=== PATIENT | male | born 1990 | race Caucasian/White ===

== ENCOUNTER 2017-07-19 13:35 | Emergency (ER) | payer SELFPAY ==
--- NOTE | 2017-07-19 14:32 | EDM.PDOC ---
ED HPI GENERAL MEDICAL PROBLEM - General Chief Complaint: Abdominal Pain Stated Complaint: NO ENERGY AND TIRED Time Seen by Provider: 07/19/17 13:47 Source of Information: Reports: Patient History Limitations: Reports: No Limitations - History of Present Illness INITIAL COMMENTS - FREE TEXT/NARRATIVE: Resents reporting a four-day history of epigastric pain. Reports off and on nausea but no vomiting. He reports a poor appetite but has been eating and drinking. He denies constipation or diarrhea and has had 2 soft, dark formed stools in the last 4 days. He has a history of binge drinking and did go on a binge in the hours previous to the abdominal pain starting. He is otherwise healthy without chronic medical problems. Denies fever or dysuria. abdominal Pain Score (Numeric/FACES): 7 - Related Data Allergies Allergy/AdvReac Type Severity Reaction Status Date / Time No Known Allergies Allergy Verified 07/19/17 13:46 Home Meds: Home Meds Pantoprazole Sodium [Protonix] 40 mg PO DAILY #14 tablet. 07/19/17 [Rx] Past Medical History HEENT History: Reports: None Cardiovascular History: Reports: Hypertension Respiratory History: Reports: None Gastrointestinal History: Reports: None Genitourinary History: Reports: None Musculoskeletal History: Reports: None Neurological History: Reports: None Psychiatric History: Reports: None Endocrine/Metabolic History: Reports: None Hematologic History: Reports: None Immunologic History: Reports: None Oncologic (Cancer) History: Reports: None Dermatologic History: Reports: None - Past Surgical History Head Surgeries/Procedures: Reports: None HEENT Surgical History: Reports: None Cardiovascular Surgical History: Reports: None Respiratory Surgical History: Reports: None GI Surgical History: Reports: None Male Surgical History: Reports: None Endocrine Surgical History: Reports: None Neurological Surgical History: Reports: None Musculoskeletal Surgical History: Reports: None Oncologic Surgical History: Reports: None Dermatological Surgical History: Reports: None Social & Family History - Family History Family Medical History: Noncontributory - Tobacco Use Smoking Status *Q: Current Every Day Smoker Years of Tobacco use: 10 Packs/Tins Daily: 0.5 - Caffeine Use Caffeine Use: Reports: Coffee - Recreational Drug Use Recreational Drug Use: No ED ROS GENERAL - Review of Systems Review Of Systems: ROS reveals no pertinent complaints other than HPI. ED EXAM, GI/ABD - Physical Exam Exam: See Below Exam Limited By: No Limitations General Appearance: Alert, No Apparent Distress Ears: Normal External Exam Nose: Normal Inspection Throat/Mouth: Normal Inspection Head: Atraumatic, Normocephalic Neck: Normal Inspection Respiratory/Chest: No Respiratory Distress, Lungs Clear, No Accessory Muscle Use Cardiovascular: Normal Peripheral Pulses, Regular Rate, Rhythm, No Murmur GI/Abdominal Exam: Normal Bowel Sounds, Soft, No Distention, Other (Epigastric and left upper quadrant tenderness) Back Exam: Normal Inspection Extremities: Normal Inspection Neurological: Alert, Oriented Psychiatric: Normal Affect, Normal Mood Skin Exam: Warm, Dry, Intact, Normal Color, No Rash Lymphatic: No Adenopathy Course - Vital Signs Last Recorded V/S: Last Vital Signs Temp 36.9 C 07/19/17 13:47 Pulse 73 07/19/17 13:47 Resp 18 07/19/17 13:47 BP 144/85 H 07/19/17 13:49 Pulse Ox 97 07/19/17 13:47 - Orders/Labs/Meds Orders: Active Orders 24 hr Category Date Time Status Abdomen 2V AP Flat Upright [CR] Stat Exams 07/19/17 14:26 Ordered AMYLASE [CHEM] Stat Lab 07/19/17 14:26 Ordered CBC WITH AUTO DIFF [HEME] Stat Lab 07/19/17 14:25 Ordered COMPREHENSIVE METABOLIC PN,CMP [CHEM] Stat Lab 07/19/17 14:25 Ordered ETHANOL BLOOD MEDICAL [CHEM] Stat Lab 07/19/17 14:25 Ordered Departure - Departure Time of Disposition: 14:31 Disposition: Home, Self-Care 01 Condition: Good Clinical Impression: Gastritis Qualifiers: Gastritis type: unspecified gastritis Chronicity: acute Gastritis bleeding: without bleeding Qualified Code(s): K29.00 - Acute gastritis without bleeding - Discharge Information Referrals: PCP,None [Primary Care Provider] - [facility] [Outside] [facility] [Outside] Additional Instructions: 1. Take your Protonix once daily 30 minutes before breakfast. 2. May use Zantac or Pepsid [id number] once daily along with the Protonix 3. You must follow-up in primary care. Please bring a stool sample with you for H. pylori testing. 4. You may also use Maalox 10-20 cc twice daily for epigastric pain. 5. Please refrain from alcohol use. - My Orders Last 24 Hours: My Active Orders 07/19/17 14:25 CBC WITH AUTO DIFF [HEME] Stat COMPREHENSIVE METABOLIC PN,CMP [CHEM] Stat ETHANOL BLOOD MEDICAL [CHEM] Stat 07/19/17 14:26 Abdomen 2V AP Flat Upright [CR] Stat AMYLASE [CHEM] Stat - Assessment/Plan Last 24 Hours: My Active Orders 07/19/17 14:25 CBC WITH AUTO DIFF [HEME] Stat COMPREHENSIVE METABOLIC PN,CMP [CHEM] Stat ETHANOL BLOOD MEDICAL [CHEM] Stat 07/19/17 14:26 Abdomen 2V AP Flat Upright [CR] Stat AMYLASE [CHEM] Stat
[2017-07-19 14:48] LABS: CHLORIDE,CL 102 mmol/L (98-107); SODIUM,NA 138 mmol/L (136-148)
--- NOTE | 2017-07-19 15:16 | CR ---
EXAMINATION: Abdomen HISTORY: Pain COMPARISON: None TECHNIQUE: AP and upright views FINDINGS: No free air under the diaphragm. There is a nonobstructive bowel gas pattern with a small a mount of stool and gas throughout the colon. No cardiomegaly. No abnormal calcifications project over the kidneys. Osseous structures appear normal. IMPRESSION: Unremarkable abdominal films.
[2017-07-19] MEDS ORDERED: Ondansetron 4 MG/2 ML SDV IVPUSH ONE (15:33)
[2017-07-19] MEDS ORDERED: Sodium Chloride 0.9% 1,000 ML IV ONE (15:33)
== END 2017-07-19 17:43 | disposition home or self-care (01) ==
LOC: MW.ED 13:35
DX: K29.00 Acute gastritis without bleeding (principal); I10 Essential (primary) hypertension; F17.210 Nicotine dependence, cigarettes, uncomplicated
CPT/HCPCS: 74019; 80053; 82150; 85025; 96361; 96374; 99284; G0480; J2405; J7040

== ENCOUNTER 2018-09-13 05:01 | Emergency (ER) | payer BC, OTHER ==
[2018-09-13] MEDS ORDERED: Pantoprazole 40 MG Vial IVPUSH ONE (05:22)
[2018-09-13] MEDS ORDERED: Ondansetron 4 MG/2 ML SDV IVPUSH ONE (05:22)
[2018-09-13] MEDS ORDERED: Sodium Chloride 0.9% 1,000 ML IV ONE (05:22)
[2018-09-13] MEDS ORDERED: Sodium Chloride 0.9% 10 ML Syringe FLUSH PRN (05:23)
[2018-09-13] MEDS ORDERED: Sodium Chloride 0.9% 2.5 ML Syringe FLUSH PRN (05:23)
--- NOTE | 2018-09-13 05:27 | EDM.PDOC ---
ED HPI GENERAL MEDICAL PROBLEM - General Chief Complaint: Gastrointestinal Problem Stated Complaint: BLOTTED Time Seen by Provider: 09/13/18 05:18 - History of Present Illness INITIAL COMMENTS - FREE TEXT/NARRATIVE: HISTORY AND PHYSICAL: History of present illness: The patient is a 27-year-old male with no abdominal surgical history and no documented GI history was been seen here in the emergency department in the past in July 2017 for epigastric pain/gastritis after an episode of binge drinking and who presents this evening with similar. He says that he drank heavily over the weekend when he was up at the [place] and then starting on Tuesday he had epigastric pain associated with some nausea and vomiting and then yesterday on Tuesday he was unable to keep any fluids down. In the past he was prescribed Protonix which he took and finished the prescription but he never followed up for further testing or endoscopy. He has no history of food intolerance no recent fevers chills no chest pain or shortness of breath and has not had a bowel movement over the last 2 days. Over the weekend he did have some loose stools which were not black or bloody. The patient says he is not vomiting coffee grounds or blood but he is only vomiting up everything that he puts in. Review of systems: As per history of present illness and below otherwise all systems reviewed and negative. Past medical history: As per history of present illness and as reviewed below otherwise noncontributory. Surgical history: As per history of present illness and as reviewed below otherwise noncontributory. Social history: No reported history of drug or alcohol abuse. Family history: As per history of present illness and as reviewed below otherwise noncontributory. Physical exam: General: Well-developed well-nourished man who is nontoxic and vital signs are noted by me HEENT: Atraumatic, normocephalic, pupils reactive, negative for conjunctival pallor or scleral icterus, mucous membranes moist, throat clear, neck supple, nontender, trachea midline. Lungs: Clear to auscultation, breath sounds equal bilaterally, chest nontender. Heart: S1S2, regular rhythm is fairly tachycardic rate on my evaluation Abdomen: Soft, nondistended, no sounds are hypoactive and there is some tympany on percussion without rebound or guarding. There is mild epigastric tenderness and some slight right epigastric tenderness but no left upper quadrant or lower abdominal tenderness Negative for masses or hepatosplenomegaly. Negative for costovertebral tenderness. Pelvis: Stable nontender. Genitourinary: Deferred. Rectal: Deferred. Extremities: Atraumatic, negative for cords or calf pain. Neurovascular unremarkable. Neuro: Awake, alert, oriented. Cranial nerves II through XII unremarkable. Cerebellum unremarkable. Motor and sensory unremarkable throughout. Exam nonfocal. Diagnostics: CBC CMP amylase lipase UA with reflex alcohol level abdominal x-rays with chest Therapeutics: IV fluids Zofran and Protonix, Toradol and GI cocktail Impression: Epigastric pain and vomiting history of recent alcohol use Definitive disposition and diagnosis as appropriate pending reevaluation and review of above. Abdomen Pain Score (Numeric/FACES): 6 - Related Data Allergies Allergy/AdvReac Type Severity Reaction Status Date / Time No Known Allergies Allergy Verified 09/13/18 05:10 Home Meds: Home Meds Cannabidiol (Cbd) Extract [Epidiolex] 200 mg PO DAILY 09/13/18 [History] Past Medical History HEENT History: Reports: None Cardiovascular History: Reports: Hypertension Respiratory History: Reports: None Gastrointestinal History: Reports: None Genitourinary History: Reports: None Musculoskeletal History: Reports: None Neurological History: Reports: None Psychiatric History: Reports: Anxiety, Depression Endocrine/Metabolic History: Reports: None Hematologic History: Reports: None Immunologic History: Reports: None Oncologic (Cancer) History: Reports: None Dermatologic History: Reports: None - Infectious Disease History Infectious Disease History: Reports: None - Past Surgical History Head Surgeries/Procedures: Reports: None HEENT Surgical History: Reports: None Cardiovascular Surgical History: Reports: None Respiratory Surgical History: Reports: None GI Surgical History: Reports: None Male Surgical History: Reports: None Endocrine Surgical History: Reports: None Neurological Surgical History: Reports: None Musculoskeletal Surgical History: Reports: None Oncologic Surgical History: Reports: None Dermatological Surgical History: Reports: None Social & Family History - Family History Family Medical History: Noncontributory - Tobacco Use Smoking Status *Q: Current Every Day Smoker Years of Tobacco use: 10 Packs/Tins Daily: 1 - Caffeine Use Caffeine Use: Reports: Coffee - Recreational Drug Use Recreational Drug Use: No ED ROS GENERAL - Review of Systems Review Of Systems: ROS reveals no pertinent complaints other than HPI. ED EXAM, GENERAL - Physical Exam Exam: See Below (See dictation) Course - Vital Signs Last Recorded V/S: Last Vital Signs Temp 36.4 C 09/13/18 05:12 Pulse 55 L 09/13/18 05:12 Resp 18 09/13/18 05:12 BP 146/77 H 09/13/18 05:12 Pulse Ox 98 09/13/18 05:12 - Orders/Labs/Meds Orders: Active Orders 24 hr Category Date Time Status Sodium Chloride 0.9% [Saline Flush] Med 09/13/18 05:23 Active 10 ml FLUSH ASDIRECTED PRN Sodium Chloride 0.9% [Saline Flush] Med 09/13/18 05:23 Active 2.5 ml FLUSH ASDIRECTED PRN Saline Lock Insert [OM.PC] Stat Oth 09/13/18 05:22 Ordered Medication Orders Sodium Chloride (Saline Flush) 10 ml FLUSH ASDIRECTED PRN PRN Reason: Keep Vein Open Sodium Chloride (Saline Flush) 2.5 ml FLUSH ASDIRECTED PRN PRN Reason: Keep Vein Open Labs: Laboratory Tests 09/13/18 09/13/18 09/13/18 Range/Units 05:25 05:25 06:02 WBC 12.53 H (4.0-11.0) K/uL RBC 5.46 (4.50-5.90) M/uL Hgb 16.8 (13.0-17.0) g/dL Hct 48.0 (38.0-50.0) % MCV 87.9 (80.0-98.0) fL MCH 30.8 (27.0-32.0) pg MCHC 35.0 (31.0-37.0) g/dL RDW Std Deviation 38.8 (28.0-62.0) fl RDW Coeff of Dwight 12 (11.0-15.0) % Plt Count 177 (150-400) K/uL MPV 10.50 (7.40-12.00) fL Neut % (Auto) 64.1 (48.0-80.0) % Lymph % (Auto) 24.8 (16.0-40.0) % [place] % (Auto) 9.3 (0.0-15.0) % Eos % (Auto) 1.6 (0.0-7.0) % Baso % (Auto) 0.2 (0.0-1.5) % Neut # (Auto) 8.0 H (1.4-5.7) K/uL Lymph # (Auto) 3.1 H (0.6-2.4) K/uL [place] # (Auto) 1.2 H (0.0-0.8) K/uL Eos # (Auto) 0.2 (0.0-0.7) K/uL Baso # (Auto) 0.0 (0.0-0.1) K/uL Nucleated RBC % 0.0 /100WBC Nucleated RBCs # 0 K/uL Sodium 140 (136-148) mmol/L Potassium 4.0 (3.5-5.1) mmol/L Chloride 104 (98-107) mmol/L Carbon Dioxide 25.3 (21.0-32.0) mmol/L BUN 14 (7.0-18.0) mg/dL Creatinine 1.0 (0.8-1.3) mg/dL Est Cr Clr Drug Dosing 110.96 mL/min Estimated GFR (MDRD) > 60.0 ml/min Glucose 102 (74-106) mg/dL Calcium 8.9 (8.5-10.1) mg/dL Total Bilirubin 0.9 (0.2-1.0) mg/dL AST 28 (15-37) IU/L ALT 80 H (14-63) IU/L Alkaline Phosphatase 56 (46-116) U/L Total Protein 6.9 (6.4-8.2) g/dL Albumin 3.8 (3.4-5.0) g/dL Globulin 3.1 (2.6-4.0) g/dL Albumin/Globulin Ratio 1.2 (0.9-1.6) Amylase 41 (25-115) U/L Lipase 185 (73-393) U/L Urine Color YELLOW Urine Appearance CLEAR Urine pH 7.0 (5.0-8.0) Ur Specific [place] 1.015 (1.001-1.035) Urine Protein NEGATIVE (NEGATIVE) mg/dL Urine Glucose (UA) NEGATIVE (NEGATIVE) mg/dL Urine Ketones NEGATIVE (NEGATIVE) mg/dL Urine Occult Blood NEGATIVE (NEGATIVE) Urine Nitrite NEGATIVE (NEGATIVE) Urine Bilirubin NEGATIVE (NEGATIVE) Urine Urobilinogen 0.2 (<2.0) EU/dL Ur Leukocyte Esterase NEGATIVE (NEGATIVE) Ethyl Alcohol 4 mg/dL Meds: Medications Generic Name Dose Route Start Last Admin Trade Name Freq PRN Reason Stop Dose Admin Sodium Chloride 10 ml 09/13/18 05:23 Saline Flush FLUSH ASDIRECTED PRN Keep Vein Open Sodium Chloride 2.5 ml 09/13/18 05:23 Saline Flush FLUSH ASDIRECTED PRN Keep Vein Open Discontinued Medications Generic Name Dose Route Start Last Admin Trade Name Freq PRN Reason Stop Dose Admin Al Hydroxide/Mg Hydroxide 15 0 ml 09/13/18 06:21 ml/ Metoclopramide HCl 5 mg/ PO 09/13/18 06:22 Lidocaine HCl 5 ml ONETIME ONE Sodium Chloride 1,000 mls @ 999 mls/hr 09/13/18 05:22 09/13/18 05:36 Normal Saline IV 09/13/18 06:22 999 mls/hr STAT ONE Administration Ketorolac Tromethamine 30 mg 09/13/18 06:21 Toradol IVPUSH 09/13/18 06:22 ONETIME ONE Ondansetron HCl 4 mg 09/13/18 05:22 09/13/18 05:36 Zofran IVPUSH 09/13/18 05:23 4 mg ONETIME ONE Administration Pantoprazole Sodium 80 mg 09/13/18 05:22 09/13/18 05:36 Protonix Iv IVPUSH 09/13/18 05:23 80 mg .BOLUS ONE Administration Departure - Departure Time of Disposition: 06:23 Disposition: Home, Self-Care 01 Condition: Good Clinical Impression: Vomiting, Abdominal pain - Discharge Information Referrals: PCP,None [Primary Care Provider] - Forms: ED Department Discharge Additional Instructions: The following information is given to patients seen in the emergency department who are being discharged to home. This information is to outline your options for follow-up care. We provide all patients seen in our emergency department with a follow-up referral. The need for follow-up, as well as the timing and circumstances, are variable depending upon the specifics of your emergency department visit. If you don't have a primary care physician on staff, we will provide you with a referral. We always advise you to contact your personal physician following an emergency department visit to inform them of the circumstance of the visit and for follow-up with them and/or the need for any referrals to a consulting specialist. The emergency department will also refer you to a specialist when appropriate. This referral assures that you have the opportunity for followup care with a specialist. All of these measure are taken in an effort to provide you with optimal care, which includes your followup. Under all circumstances we always encourage you to contact your private physician who remains a resource for coordinating your care. When calling for followup care, please make the office aware that this follow-up is from your recent emergency room visit. If for any reason you are refused follow-up, please contact the [facility] emergency department at and ask to speak to the emergency department charge nurse. [facility] Primary [facility]- Internal Medicine and Family [address] [id number] Please push hydration such as water and Gatorade and avoid all irritating substances to the stomach such as caffeine and alcohol chocolate and spicy foods. Eat a low-fat bland diet for the next few days. Take Protonix as prescribed and he may also add [id number] Mylanta as you choose to help soothe her stomach. Please call and schedule a follow-up appointment appointment in our clinic as we discussed for further care and reevaluation and return to ER as needed and as discussed - My Orders Last 24 Hours: My Active Orders 09/13/18 05:22 Saline Lock Insert [OM.PC] Stat 09/13/18 05:23 Sodium Chloride 0.9% [Saline Flush] 10 ml FLUSH ASDIRECTED PRN Sodium Chloride 0.9% [Saline Flush] 2.5 ml FLUSH ASDIRECTED PRN - Assessment/Plan Last 24 Hours: My Active Orders 09/13/18 05:22 Saline Lock Insert [OM.PC] Stat 09/13/18 05:23 Sodium Chloride 0.9% [Saline Flush] 10 ml FLUSH ASDIRECTED PRN Sodium Chloride 0.9% [Saline Flush] 2.5 ml FLUSH ASDIRECTED PRN
[2018-09-13 06:13] LABS: BLOOD UREA NITROGEN,BUN 14 mg/dL (7.0-18.0); CARBON DIOXIDE,CO2 25.3 mmol/L (21.0-32.0); CHLORIDE,CL 104 mmol/L (98-107); GLUCOSE RANDOM 102 mg/dL (74-106); LIPASE 185 U/L (73-393); SODIUM,NA 140 mmol/L (136-148)
--- NOTE | 2018-09-13 06:14 | CR ---
INDICATION: Abdominal pain COMPARISON: none TECHNIQUE: Two view abdomen and PA chest. FINDINGS: The lungs are clear. The heart mediastinum and pulmonary vessels are normal in size. There is no evidence pleural fluid. The bowel gas pattern appears normal. There is no evidence of free intraperitoneal air or soft tissue mass effect. There are no pathologic calcifications. IMPRESSION: Negative chest and abdomen. Dictated by Michi Lorenzo MD @ Sep 13 2018 6:09AM Signed by Dr. Michi Lorenzo @ Sep 13 2018 6:14AM
[2018-09-13] MEDS ORDERED: Ketorolac 30 MG/ML SDV IVPUSH ONE (06:21)
[2018-09-13] MEDS ORDERED: Alum Hydrox/Mag Hydrox/Simeth 15 ML, Metoclopramide 5 MG, Lidocaine 2% 5 ML PO ONE ×3 (06:21)
== END 2018-09-13 07:21 | disposition home or self-care (01) ==
LOC: MW.ED 05:01
DX: R10.13 Epigastric pain (principal); R11.10 Vomiting, unspecified; I10 Essential (primary) hypertension; F17.210 Nicotine dependence, cigarettes, uncomplicated
CPT/HCPCS: 36415; 74022; 80053; 81003; 82150; 83690; 85025; 96361; 96374; 96375; 99284; A9270; C9113; G0480; J1885; J2405; J7040

== ENCOUNTER 2018-10-27 00:33 | Emergency (ER) | payer SELFPAY ==
[2018-10-27] MEDS ORDERED: Sodium Chloride 0.9% 10 ML Syringe FLUSH PRN (00:57)
[2018-10-27] MEDS ORDERED: Sodium Chloride 0.9% 2.5 ML Syringe FLUSH PRN (00:57)
[2018-10-27] MEDS ORDERED: Sodium Chloride 0.9% 1,000 ML IV ONE (01:03)
--- NOTE | 2018-10-27 01:07 | EDM.PDOC ---
ED HPI GENERAL MEDICAL PROBLEM - General Chief Complaint: General Stated Complaint: CHILLS, LOW HEART RATE Time Seen by Provider: 10/27/18 00:55 - History of Present Illness INITIAL COMMENTS - FREE TEXT/NARRATIVE: HISTORY AND PHYSICAL: History of present illness: The patient is a 27-year-old male who presents with onset just prior to admission of feeling lightheaded feeling weak feeling shaky she really and anxious as he was trying to get ready for bed. He did not pass out or blackout and had no trauma with these events. Earlier today he said he did take an over- the-counter stimulant to help him focus at 12 noon and he says that it worked well throughout the day evening he came home and ate food and was feeling at his baseline and did have an alcoholic beverage and then was getting ready for bed when the symptoms started. He denies any complaints of chest pain or shortness of breath no abdominal pain no nausea or vomiting and no diarrhea earlier. He has no head neck or back pain. Patient has been seen before in the emergency department for stomach issues such as gastritis and I reviewed that chart. The patient denies drug use. Currently he says numerous [place] he does has generalized weakness and feels like he has no energy. General: Well- developed well-nourished man who is nontoxic and vital signs were noted by me. He prefers to keep his head turned to the side in his eyes closed and speaks very slowly and softly and is able to move all extremities spontaneously but there is a lack of effort on my examination. Review of systems: As per history of present illness and below otherwise all systems reviewed and negative. Past medical history: As per history of present illness and as reviewed below otherwise noncontributory. Surgical history: As per history of present illness and as reviewed below otherwise noncontributory. Social history: No reported history of drug or alcohol abuse. Family history: As per history of present illness and as reviewed below otherwise noncontributory. Physical exam: HEENT: Atraumatic, normocephalic, pupils reactive, negative for conjunctival pallor or scleral icterus, mucous membranes tacky, throat clear, neck supple, nontender, trachea midline. Lungs: Clear to auscultation, breath sounds equal bilaterally, chest nontender. Heart: S1S2, regular, negative for clicks, rubs, or JVD. Abdomen: Soft, nondistended, nontender. sounds are hypoactive and there is some tympany on percussion without rebound guarding or tenderness. Negative for masses or hepatosplenomegaly. Negative for costovertebral tenderness. Pelvis: Stable nontender. Genitourinary: Deferred. Rectal: Deferred. Extremities: Atraumatic, negative for cords or calf pain. Neurovascular unremarkable. Neuro: Awake, alert, oriented. Cranial nerves II through XII unremarkable. Cerebellum unremarkable. Motor is a 3/5 throughout without focal weakness and effort is poor on the patient's exam and sensory unremarkable throughout. Exam nonfocal. Skin: Turgor is normal face is slightly flushed and there is no overt rashes or lesions Diagnostics: EKG CBC CMP alcohol level troponin TSH UA UDS CT scan of the head chest x-ray Therapeutics: IV O2 monitor IV fluids Patient is saying that he is feeling much improved and he was able to get up and ambulate to the bathroom and is moving all extremities with normal strength. I discussed with him and his significant other at bedside all testing results which are within normal limits with the exception of the TSH that is elevated. I've advised him to get a full thyroid panel performed in the clinic to see if he is hypothyroid and needs medications. The patient states understanding. He also tells me that he has a history of ADHD and was on medications until he was [age] years of age when he stopped taking them which is why he takes these [id number] supplements. He is been advised to push hydration and avoid the supplements and caffeinated products and to follow- up in our clinic. Impression: Episode of lightheadedness and generalized weakness Definitive disposition and diagnosis as appropriate pending reevaluation and review of above. - Related Data Allergies Allergy/AdvReac Type Severity Reaction Status Date / Time No Known Allergies Allergy Verified 10/27/18 00:46 Home Meds: Home Meds Cannabidiol (Cbd) Extract [Epidiolex] 200 mg PO DAILY 09/13/18 [History] Past Medical History HEENT History: Reports: None Cardiovascular History: Reports: Hypertension, Other (See Below) Other Cardiovascular History: states he's never been on anti-HTN med Respiratory History: Reports: None Gastrointestinal History: Reports: None Genitourinary History: Reports: None Musculoskeletal History: Reports: None Neurological History: Reports: None Psychiatric History: Reports: Anxiety, Depression Endocrine/Metabolic History: Reports: None Hematologic History: Reports: None Immunologic History: Reports: None Oncologic (Cancer) History: Reports: None Dermatologic History: Reports: None - Infectious Disease History Infectious Disease History: Reports: Chicken Pox - Past Surgical History Head Surgeries/Procedures: Reports: None HEENT Surgical History: Reports: None Cardiovascular Surgical History: Reports: None Respiratory Surgical History: Reports: None GI Surgical History: Reports: None Male Surgical History: Reports: None Endocrine Surgical History: Reports: None Neurological Surgical History: Reports: None Musculoskeletal Surgical History: Reports: None Oncologic Surgical History: Reports: None Dermatological Surgical History: Reports: None Social & Family History - Family History Family Medical History: Noncontributory - Tobacco Use Smoking Status *Q: Current Every Day Smoker Years of Tobacco use: 10 Packs/Tins Daily: 1 - Caffeine Use Caffeine Use: Reports: None - Recreational Drug Use Recreational Drug Use: No ED ROS GENERAL - Review of Systems Review Of Systems: ROS reveals no pertinent complaints other than HPI. ED EXAM, GENERAL - Physical Exam Exam: See Below (See dictation) Course - Vital Signs Last Recorded V/S: Last Vital Signs Temp 36.0 C 10/27/18 00:36 Pulse 57 L 10/27/18 02:15 Resp 15 10/27/18 02:15 BP 116/66 10/27/18 02:15 Pulse Ox 97 10/27/18 02:15 - Orders/Labs/Meds Orders: Active Orders 24 hr Category Date Time Status Cardiac Monitoring [RC] . DIRECTED Care 10/27/18 00:57 Active EKG Documentation Completion [RC] STAT Care 10/27/18 00:57 Active Oxygen Therapy, ED [RC] ASDIRECTED Care 10/27/18 00:57 Active Pulse Oximetry [RC] ASDIRECTED Care 10/27/18 00:57 Active Sodium Chloride 0.9% [Saline Flush] Med 10/27/18 00:57 Active 10 ml FLUSH ASDIRECTED PRN Sodium Chloride 0.9% [Saline Flush] Med 10/27/18 00:57 Active 2.5 ml FLUSH ASDIRECTED PRN Saline Lock Insert [OM.PC] Stat Oth 10/27/18 00:57 Ordered Medication Orders Sodium Chloride (Saline Flush) 10 ml FLUSH ASDIRECTED PRN PRN Reason: Keep Vein Open Sodium Chloride (Saline Flush) 2.5 ml FLUSH ASDIRECTED PRN PRN Reason: Keep Vein Open Labs: Laboratory Tests 10/27/18 10/27/18 10/27/18 Range/Units 01:55 01:55 01:58 WBC 6.82 (4.0-11.0) K/uL RBC 4.86 (4.50-5.90) M/uL Hgb 14.8 (13.0-17.0) g/dL Hct 41.9 (38.0-50.0) % MCV 86.2 (80.0-98.0) fL MCH 30.5 (27.0-32.0) pg MCHC 35.3 (31.0-37.0) g/dL RDW Std Deviation 38.6 (28.0-62.0) fl RDW Coeff of [place] 12 (11.0-15.0) % Plt Count 160 (150-400) K/uL MPV 9.90 (7.40-12.00) fL Neut % (Auto) 46.7 L (48.0-80.0) % Lymph % (Auto) 39.6 (16.0-40.0) % [place] % (Auto) 10.6 (0.0-15.0) % Eos % (Auto) 2.8 (0.0-7.0) % Baso % (Auto) 0.3 (0.0-1.5) % Neut # (Auto) 3.2 (1.4-5.7) K/uL Lymph # (Auto) 2.7 H (0.6-2.4) K/uL [place] # (Auto) 0.7 (0.0-0.8) K/uL Eos # (Auto) 0.2 (0.0-0.7) K/uL Baso # (Auto) 0.0 (0.0-0.1) K/uL Nucleated RBC % 0.0 /100WBC Nucleated RBCs # 0 K/uL Sodium 140 (136-148) mmol/L Potassium 4.0 (3.5-5.1) mmol/L Chloride 105 (98-107) mmol/L Carbon Dioxide 28.0 (21.0-32.0) mmol/L BUN 20 H (7.0-18.0) mg/dL Creatinine 1.3 (0.8-1.3) mg/dL Est Cr Clr Drug Dosing 88.13 mL/min Estimated GFR (MDRD) > 60.0 ml/min Glucose 97 (74-106) mg/dL Calcium 9.2 (8.5-10.1) mg/dL Total Bilirubin 0.4 (0.2-1.0) mg/dL AST 30 (15-37) IU/L ALT 63 (14-63) IU/L Alkaline Phosphatase 56 (46-116) U/L Troponin I < 0.050 (0.000-0.056) ng/mL Total Protein 6.5 (6.4-8.2) g/dL Albumin 3.7 (3.4-5.0) g/dL Globulin 2.8 (2.6-4.0) g/dL Albumin/Globulin Ratio 1.3 (0.9-1.6) TSH 3rd Generation 6.24 H (0.36-3.74) uIU/mL Urine Color YELLOW Urine Appearance CLEAR Urine pH 7.0 (5.0-8.0) Ur Specific [place] 1.015 (1.001-1.035) Urine Protein NEGATIVE (NEGATIVE) mg/dL Urine Glucose (UA) NEGATIVE (NEGATIVE) mg/dL Urine Ketones NEGATIVE (NEGATIVE) mg/dL Urine Occult Blood NEGATIVE (NEGATIVE) Urine Nitrite NEGATIVE (NEGATIVE) Urine Bilirubin NEGATIVE (NEGATIVE) Urine Urobilinogen 0.2 (<2.0) EU/dL Ur Leukocyte Esterase NEGATIVE (NEGATIVE) Urine Opiates Screen (NEGATIVE) Ur Oxycodone Screen (NEGATIVE) Urine Methadone Screen (NEGATIVE) Ur Barbiturates Screen (NEGATIVE) Ur Phencyclidine Scrn (NEGATIVE) Ur Amphetamine Screen (NEGATIVE) U Methamphetamines Scrn (NEGATIVE) U Benzodiazepines Scrn (NEGATIVE) U Cocaine Metab Screen (NEGATIVE) U Marijuana (THC) Screen (NEGATIVE) Ethyl Alcohol <3 mg/dL 10/27/18 Range/Units 01:58 WBC (4.0-11.0) K/uL RBC (4.50-5.90) M/uL Hgb (13.0-17.0) g/dL Hct (38.0-50.0) % MCV (80.0-98.0) fL MCH (27.0-32.0) pg MCHC (31.0-37.0) g/dL RDW Std Deviation (28.0-62.0) fl RDW Coeff of [place] (11.0-15.0) % Plt Count (150-400) K/uL MPV (7.40-12.00) fL Neut % (Auto) (48.0-80.0) % Lymph % (Auto) (16.0-40.0) % [place] % (Auto) (0.0-15.0) % Eos % (Auto) (0.0-7.0) % Baso % (Auto) (0.0-1.5) % Neut # (Auto) (1.4-5.7) K/uL Lymph # (Auto) (0.6-2.4) K/uL [place] # (Auto) (0.0-0.8) K/uL Eos # (Auto) (0.0-0.7) K/uL Baso # (Auto) (0.0-0.1) K/uL Nucleated RBC % /100WBC Nucleated RBCs # K/uL Sodium (136-148) mmol/L Potassium (3.5-5.1) mmol/L Chloride (98-107) mmol/L Carbon Dioxide (21.0-32.0) mmol/L BUN (7.0-18.0) mg/dL Creatinine (0.8-1.3) mg/dL Est Cr Clr Drug Dosing mL/min Estimated GFR (MDRD) ml/min Glucose (74-106) mg/dL Calcium (8.5-10.1) mg/dL Total Bilirubin (0.2-1.0) mg/dL AST (15-37) IU/L ALT (14-63) IU/L Alkaline Phosphatase (46-116) U/L Troponin I (0.000-0.056) ng/mL Total Protein (6.4-8.2) g/dL Albumin (3.4-5.0) g/dL Globulin (2.6-4.0) g/dL Albumin/Globulin Ratio (0.9-1.6) TSH 3rd Generation (0.36-3.74) uIU/mL Urine Color Urine Appearance Urine pH (5.0-8.0) Ur Specific [place] (1.001-1.035) Urine Protein (NEGATIVE) mg/dL Urine Glucose (UA) (NEGATIVE) mg/dL Urine Ketones (NEGATIVE) mg/dL Urine Occult Blood (NEGATIVE) Urine Nitrite (NEGATIVE) Urine Bilirubin (NEGATIVE) Urine Urobilinogen (<2.0) EU/dL Ur Leukocyte Esterase (NEGATIVE) Urine Opiates Screen NEGATIVE (NEGATIVE) Ur Oxycodone Screen NEGATIVE (NEGATIVE) Urine Methadone Screen NEGATIVE (NEGATIVE) Ur Barbiturates Screen NEGATIVE (NEGATIVE) Ur Phencyclidine Scrn NEGATIVE (NEGATIVE) Ur Amphetamine Screen NEGATIVE (NEGATIVE) U Methamphetamines Scrn NEGATIVE (NEGATIVE) U Benzodiazepines Scrn NEGATIVE (NEGATIVE) U Cocaine Metab Screen NEGATIVE (NEGATIVE) U Marijuana (THC) Screen NEGATIVE (NEGATIVE) Ethyl Alcohol mg/dL Meds: Medications Generic Name Dose Route Start Last Admin Trade Name Freq PRN Reason Stop Dose Admin Sodium Chloride 10 ml 10/27/18 00:57 Saline Flush FLUSH ASDIRECTED PRN Keep Vein Open Sodium Chloride 2.5 ml 10/27/18 00:57 Saline Flush FLUSH ASDIRECTED PRN Keep Vein Open Discontinued Medications Generic Name Dose Route Start Last Admin Trade Name Freq PRN Reason Stop Dose Admin Sodium Chloride 1,000 mls @ 999 mls/hr 10/27/18 01:03 10/27/18 01:09 Normal Saline IV 10/27/18 02:03 999 mls/hr STAT ONE Administration Departure - Departure Time of Disposition: 02:55 Disposition: Home, Self-Care 01 Condition: Good Clinical Impression: Weakness, Light headedness - Discharge Information Referrals: PCP,None [Primary Care Provider] - Forms: ED Department Discharge Additional Instructions: The following information is given to patients seen in the emergency department who are being discharged to home. This information is to outline your options for follow-up care. We provide all patients seen in our emergency department with a follow-up referral. The need for follow-up, as well as the timing and circumstances, are variable depending upon the specifics of your emergency department visit. If you don't have a primary care physician on staff, we will provide you with a referral. We always advise you to contact your personal physician following an emergency department visit to inform them of the circumstance of the visit and for follow-up with them and/or the need for any referrals to a consulting specialist. The emergency department will also refer you to a specialist when appropriate. This referral assures that you have the opportunity for followup care with a specialist. All of these measure are taken in an effort to provide you with optimal care, which includes your followup. Under all circumstances we always encourage you to contact your private physician who remains a resource for coordinating your care. When calling for followup care, please make the office aware that this follow-up is from your recent emergency room visit. If for any reason you are refused follow-up, please contact the [facility] emergency department at and ask to speak to the emergency department charge nurse. [facility] Primary care- Internal Medicine and Family [address] [address] I draped and avoid caffeinated products and try to eat healthfully. Rest as much as possible and call and schedule a follow-up appointment in the clinic or with your provider for further care and reevaluation of tonight's events. Return to ER as needed and as discussed - My Orders Last 24 Hours: My Active Orders 10/27/18 00:57 Cardiac Monitoring [RC] . DIRECTED EKG Documentation Completion [RC] STAT Oxygen Therapy, ED [RC] ASDIRECTED Pulse Oximetry [RC] ASDIRECTED Sodium Chloride 0.9% [Saline Flush] 10 ml FLUSH ASDIRECTED PRN Sodium Chloride 0.9% [Saline Flush] 2.5 ml FLUSH ASDIRECTED PRN Saline Lock Insert [OM.PC] Stat - Assessment/Plan Last 24 Hours: My Active Orders 10/27/18 00:57 Cardiac Monitoring [RC] . DIRECTED EKG Documentation Completion [RC] STAT Oxygen Therapy, ED [RC] ASDIRECTED Pulse Oximetry [RC] ASDIRECTED Sodium Chloride 0.9% [Saline Flush] 10 ml FLUSH ASDIRECTED PRN Sodium Chloride 0.9% [Saline Flush] 2.5 ml FLUSH ASDIRECTED PRN Saline Lock Insert [OM.PC] Stat
--- NOTE | 2018-10-27 01:45 | CR ---
INDICATION: chills, low heart rate CHEST, ONE VIEW An AP radiograph of the chest was performed. Comparison: No previous studies are currently available for comparison. The lungs appear clear and no pleural effusions are identified. Heart size is within normal limits for AP technique. The pulmonary vasculature appears normal, as do the visualized bones. IMPRESSION: No acute intrathoracic abnormality identified. TROY GREWAL MD [employer] [facility] Dictated by: Abdiel Grewal MD @ 10/27/2018 01:44:33 (Electronically Signed)
--- NOTE | 2018-10-27 01:49 | CT ---
INDICATION: chills, low heart rate CT HEAD WITHOUT CONTRAST TECHNIQUE: Multiple axial CT images were performed through the head without intravenous contrast administration. COMPARISON: No previous studies are currently available for comparison. FINDINGS: No acute intracranial hemorrhage is identified. There is no mass effect or midline shift. Ventricles are normal in size and configuration. Brain parenchyma appears normal with unremarkable singh-white differentiation. 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 Osseous structures are within normal limits and no fractures are seen. Included portions of the paranasal sinuses and mastoid air cells are normally aerated. IMPRESSION: No acute intracranial abnormality identified. TROY GREWAL MD [employer] Dictated by: Abdiel Grewal MD @ 10/27/2018 01:48:12 (Electronically Signed)
[2018-10-27 02:31] LABS: BLOOD UREA NITROGEN,BUN 20 mg/dL (7.0-18.0); CHLORIDE,CL 105 mmol/L (98-107); GLUCOSE RANDOM 97 mg/dL (74-106); SODIUM,NA 140 mmol/L (136-148)
== END 2018-10-27 03:07 | disposition home or self-care (01) ==
LOC: MW.ED 00:33
DX: R42 Dizziness and giddiness (principal); R53.1 Weakness; I10 Essential (primary) hypertension; F41.9 Anxiety disorder, unspecified; F32.9 Major depressive disorder, single episode, unspecified; F17.210 Nicotine dependence, cigarettes, uncomplicated; Z79.899 Other long term (current) drug therapy
CPT/HCPCS: 36415; 70450; 71045; 80053; 80305; 80320; 81003; 84443; 84484; 85025; 93005; 96360; 99284; J7040; G0480

== ENCOUNTER 2019-01-04 13:42 | Emergency (ER) | payer SELFPAY ==
--- NOTE | 2019-01-04 13:56 | EDM.PDOC ---
ED HPI GENERAL MEDICAL PROBLEM - General Chief Complaint: Headache Stated Complaint: HEADACHE Time Seen by Provider: 01/04/19 13:43 Source of Information: Reports: Patient History Limitations: Reports: No Limitations - History of Present Illness INITIAL COMMENTS - FREE TEXT/NARRATIVE: HISTORY AND PHYSICAL: History of present illness: Patient is a 28-year-old male who presents to the emergency room today with complaints of generalized headache. He states last evening he was drinking alcohol and sitting in a chair when he fell over onto his right side. He is unsure if he lost consciousness. He woke up this morning with a headache and scalp tenderness, "my whole head hurts". He has light sensitivity and nausea associated with this. States he took a Xanax prior to arrival; without any relief. Patient denies any fever, chills, change in vision, syncope or near syncope. Denies any chest pain, back pain, shortness of breath or cough. Denies any abdominal pain, vomiting, diarrhea, constipation or dysuria. Has not noted any blood in urine or stool. Unsure of last Tdap. Review of systems: As per history of present illness and below otherwise all systems reviewed and negative. Past medical history: As per history of present illness and as reviewed below otherwise noncontributory. Surgical history: As per history of present illness and as reviewed below otherwise noncontributory. Social history: See social history for further information Family history: As per history of present illness and as reviewed below otherwise noncontributory. Physical exam: General: Well-developed and well-nourished 28-year-old male. Alert and oriented. Nontoxic appearing and in no acute distress. Patient prefers to rest with the lights off - vitals have been reviewed by me. HEENT: Superficial abrasion noted to the left posterior scalp, generalized scalp tenderness without any deficits/crepitus, normocephalic, pupils equal and reactive bilaterally, negative for conjunctival pallor or scleral icterus, mucous membranes moist, right TM is mildly erythematous with dull light reflex and no bulging, left TMs normal, throat clear, neck supple, nontender, trachea midline. No drooling or trismus noted. No meningeal signs. No hot potato voice noted. Lungs: Clear to auscultation, breath sounds equal bilaterally, chest nontender. Heart: S1S2, regular rate and rhythm, bradycardia 60-50's - without overt murmur Abdomen: Soft, nondistended, nontender. Negative for masses or hepatosplenomegaly. Negative for costovertebral tenderness. Pelvis: Stable nontender. C-spine/Back: No pinpoint vertebral tenderness upon palpation. No crepitus, step -offs or obvious deformities. Patient is ambulatory into the emergency room without difficulty or deficit. Able to rock back on heels and walk on toes. Denies any urinary or fecal incontinence. Denies any numbness, tingling or saddle paresthesia. Skin: Superficial abrasion noted to the left posterior scalp. Otherwise skin is intact, warm, dry. No lesions or rashes noted. Extremities: Atraumatic, moves all extremities per self without difficulty or deficits, negative for cords or calf pain. Neurovascular unremarkable. Neuro: Awake, alert, oriented. Cranial nerves II through XII unremarkable. Cerebellum unremarkable. Motor and sensory unremarkable throughout. Exam nonfocal. Notes: Neurologically intact. Vital signs are stable.CT shows moderate amount of edema and patchy small to moderate amounts of acute parenchymal hemorrhage in the inferior right frontal lobe with small amount of edema and acute parenchymal hemorrhage in the left frontal lobe inferior medially. Small amounts of acute subarachnoid hematoma overlying the right frontal lobe anteriorly and along the anterior falx. Questionable tiny amount of subarachnoid hemorrhage in the sulcus of the right frontal lobe could also be artifactual. Although findings are new since 10/27/2018 CT. New tissue swelling and hematoma posterior scalp. Dr Worley in [facility] was consulted on this case. He is agreeable to accepting this patient. Dr Green was directly involved in this patients case. Patient was made aware of findings and need for transfer. Will continue to monitor neurological status. Diagnostics: Head CT, EKG, CBC, CMP, INR Therapeutics: IV fluid Impression: Head Injury Subdural hematoma Plan: Transfer to [facility] via flight crew Definitive disposition and diagnosis as appropriate pending reevaluation and review of above. Left Upper Arm Pain Score (Numeric/FACES): 8 - Related Data Allergies Allergy/AdvReac Type Severity Reaction Status Date / Time No Known Allergies Allergy Verified 01/04/19 13:56 Home Meds: Home Meds ALPRAZolam [Xanax] 0.5 mg PO ASDIRECTED 01/04/19 [History] Past Medical History HEENT History: Reports: None Cardiovascular History: Reports: Hypertension, Other (See Below) Other Cardiovascular History: states he's never been on anti-HTN med Respiratory History: Reports: None Gastrointestinal History: Reports: None Genitourinary History: Reports: None Musculoskeletal History: Reports: None Neurological History: Reports: None Psychiatric History: Reports: Anxiety, Depression Endocrine/Metabolic History: Reports: None Hematologic History: Reports: None Immunologic History: Reports: None Oncologic (Cancer) History: Reports: None Dermatologic History: Reports: None - Infectious Disease History Infectious Disease History: Reports: Chicken Pox - Past Surgical History Head Surgeries/Procedures: Reports: None HEENT Surgical History: Reports: None Cardiovascular Surgical History: Reports: None Respiratory Surgical History: Reports: None GI Surgical History: Reports: None Male Surgical History: Reports: None Endocrine Surgical History: Reports: None Neurological Surgical History: Reports: None Musculoskeletal Surgical History: Reports: None Oncologic Surgical History: Reports: None Dermatological Surgical History: Reports: None Social & Family History - Family History Family Medical History: Noncontributory - Caffeine Use Caffeine Use: Reports: None ED ROS GENERAL - Review of Systems Review Of Systems: Comprehensive ROS is negative, except as noted in HPI. - Physical Exam Exam: See Below (See dictation) Course - Vital Signs Last Recorded V/S: Last Vital Signs Temp 97.9 F 01/04/19 13:57 Pulse 53 L 01/04/19 13:57 Resp 16 01/04/19 13:57 BP 135/62 01/04/19 13:57 Pulse Ox 98 01/04/19 13:57 - Orders/Labs/Meds Orders: Active Orders 24 hr Category Date Time Status EKG Documentation Completion [RC] STAT Care 01/04/19 14:07 Active Vaccines to be Administered [RC] PER UNIT ROUTINE Care 01/04/19 14:13 Active CBC WITH AUTO DIFF [HEME] Stat Lab 01/04/19 14:38 Received COMPREHENSIVE METABOLIC PN,CMP [CHEM] Stat Lab 01/04/19 14:38 Received INR,PT,PROTHROMBIN TIME [COAG] Stat Lab 01/04/19 14:38 Received Sodium Chloride 0.9% [Normal Saline] 1,000 ml Med 01/04/19 14:05 Active IV STAT Medication Orders Sodium Chloride (Normal Saline) 1,000 mls @ 999 mls/hr IV STAT ONE Stop: 01/04/19 15:05 Last Admin: 01/04/19 14:27 Dose: 999 mls/hr Meds: Medications Generic Name Dose Route Start Last Admin Trade Name Frecarmelo PRN Reason Stop Dose Admin Sodium Chloride 1,000 mls @ 999 mls/hr 01/04/19 14:05 01/04/19 14:27 Normal Saline IV 01/04/19 15:05 999 mls/hr STAT ONE Administration Discontinued Medications Generic Name Dose Route Start Last Admin Trade Name Freq PRN Reason Stop Dose Admin Diphtheria/Tetanus/Acell Pertussis 0.5 ml 01/04/19 14:13 01/04/19 14:28 Adacel IM 01/04/19 14:14 Not Given .ONCE ONE Departure - Departure Time of Disposition: 14:48 Disposition: DC/Tfer to [facility] 02 Clinical Impression: Subdural hematoma, acute Head injury Qualifiers: Encounter type: initial encounter Qualified Code(s): S09.90XA - Unspecified injury of head, initial encounter - Discharge Information Referrals: PCP,None [Primary Care Provider] - Forms: ED Department Discharge - My Orders Last 24 Hours: My Active Orders 01/04/19 14:05 Sodium Chloride 0.9% [Normal Saline] 1,000 ml IV STAT 01/04/19 14:07 EKG Documentation Completion [RC] STAT 01/04/19 14:13 Vaccines to be Administered [RC] PER UNIT ROUTINE 01/04/19 14:38 CBC WITH AUTO DIFF [HEME] Stat COMPREHENSIVE METABOLIC PN,CMP [CHEM] Stat INR,PT,PROTHROMBIN TIME [COAG] Stat - Assessment/Plan Last 24 Hours: My Active Orders 01/04/19 14:05 Sodium Chloride 0.9% [Normal Saline] 1,000 ml IV STAT 01/04/19 14:07 EKG Documentation Completion [RC] STAT 01/04/19 14:13 Vaccines to be Administered [RC] PER UNIT ROUTINE 01/04/19 14:38 CBC WITH AUTO DIFF [HEME] Stat COMPREHENSIVE METABOLIC PN,CMP [CHEM] Stat INR,PT,PROTHROMBIN TIME [COAG] Stat
[2019-01-04] MEDS ORDERED: Sodium Chloride 0.9% 1,000 ML IV ONE (14:05)
[2019-01-04] MEDS ORDERED: Diphtheria,Pertussis(Acell),Tetanus Vaccine 0.5 ML Syringe IM ONE (14:13)
--- NOTE | 2019-01-04 14:41 | CT ---
INDICATION: Injury. Hit head on floor TECHNIQUE: CT head without IV contrast. COMPARISON: CT head 10/27/2018. FINDINGS: Small acute subdural hematoma seen overlying the falx anteriorly extending for a length of 2 cm in AP dimension and measuring 4 mm in thickness. Less prominent acute subdural hematoma overlying the right frontal lobe anteriorly. Moderate amount of low-density edema in the inferior right frontal lobe with a moderate amount of acute intraparenchymal hemorrhage associated with the edema covering an area of 4-5 cm with the hemorrhage being intermixed with the edema. Smaller area of edema and acute intraparenchymal hemorrhage in the left frontal lobe anterior medially. Small amount of fluid and mucosal thickening in the left maxillary sinus. All the areas of acute intracranial hemorrhage described above are new since October of 2018 and were called to the referring provider at 2:28 p.m. on 01/04/2019. Moderate prominence of the cisterna magnum. This is stable. Probable trace amount of subarachnoid hemorrhage in a right frontal sulcus this is difficult to confirm with certainty. Soft tissue swelling and hematoma in the mid and upper posterior scalp diffusely is new. Remainder negative. IMPRESSION: 1. Moderate amount of edema and patchy small to moderate amounts of acute parenchymal hemorrhage in the inferior right frontal lobe with small amount of edema and acute parenchymal hemorrhage in the left frontal lobe inferior medially. Small amounts of acute subarachnoid hematoma overlying the right frontal lobe anteriorly and along the anterior falx. Questionable tiny amount of subarachnoid hemorrhage in the sulcus of the right frontal lobe could also be artifactual. Although findings are new since 10/27/2018 CT. 2. New tissue swelling and hematoma posterior scalp. Please note that all CT scans at this facility use dose modulation, iterative reconstruction, and/or weight-based dosing when appropriate to reduce radiation dose to as low as reasonably achievable. Dictated by William Lay MD @ Jan 04 2019 2:30PM Signed by Dr. William Lay @ Jan 04 2019 2:39PM
[2019-01-04 15:11] LABS: BLOOD UREA NITROGEN,BUN 14 mg/dL (7.0-18.0); CARBON DIOXIDE,CO2 28.6 mmol/L (21.0-32.0); CHLORIDE,CL 103 mmol/L (98-107); GLUCOSE RANDOM 113 mg/dL (74-106); SODIUM,NA 140 mmol/L (136-148)
== END 2019-01-04 15:39 ==
LOC: MW.ED 13:42
DX: S06.5X9A Traumatic subdural hemorrhage with loss of consciousness of unspecified duration, initial encounter (principal); I10 Essential (primary) hypertension; W19.XXXA Unspecified fall, initial encounter
CPT/HCPCS: 36415; 70450; 80053; 85025; 85610; 93005; 96360; 99285; J7040

== ENCOUNTER 2019-01-06 23:27 | Emergency (ER) | payer SELFPAY ==
--- NOTE | 2019-01-06 23:40 | EDM.PDOC ---
ED HPI GENERAL MEDICAL PROBLEM - General Chief Complaint: Head Injury Stated Complaint: PAIN COMING FROM HEAD Time Seen by Provider: 01/06/19 23:36 - History of Present Illness INITIAL COMMENTS - FREE TEXT/NARRATIVE: HISTORY AND PHYSICAL: History of present illness: Patient's 28-year-old male with a history of recent head injury with subdural hematoma for which he was seen at [facility] was evaluated serial CT scans with no significant interval change returns now for right ear pain and anxiety related to the subdural hematoma is with patient states she was told that this will take time and the plan on rescanning him in approximately 1 month. Review of systems: As per history of present illness and below otherwise all systems reviewed and negative. Past medical history: As per history of present illness and as reviewed below otherwise noncontributory. Surgical history: As per history of present illness and as reviewed below otherwise noncontributory. Social history: No reported history of drug or alcohol abuse. Family history: As per history of present illness and as reviewed below otherwise noncontributory. Physical exam: HEENT: Atraumatic, normocephalic, pupils reactive, negative for conjunctival pallor or scleral icterus, mucous membranes moist, throat clear, neck supple, nontender, trachea midline. Right external auditory canals injected Lungs: Clear to auscultation, breath sounds equal bilaterally, chest nontender. Heart: S1S2, regular, negative for clicks, rubs, or JVD. Abdomen: Soft, nondistended, nontender. Negative for masses or hepatosplenomegaly. Negative for costovertebral tenderness. Pelvis: Stable nontender. Genitourinary: Deferred. Rectal: Deferred. Extremities: Atraumatic, negative for cords or calf pain. Neurovascular unremarkable. Neuro: Awake, alert, oriented. Cranial nerves II through XII unremarkable. Cerebellum unremarkable. Motor and sensory unremarkable throughout. Exam nonfocal. Diagnostics: None Therapeutics: None Impression: #1 history of subdural hematoma #2 right external otitis Definitive disposition and diagnosis as appropriate pending reevaluation and review of above. headache, ears, stomach Pain Score (Numeric/FACES): 9 - Related Data Allergies Allergy/AdvReac Type Severity Reaction Status Date / Time No Known Allergies Allergy Verified 01/06/19 23:32 Home Meds: Home Meds ALPRAZolam [Xanax] 0.5 mg PO ASDIRECTED 01/04/19 [History] levETIRAcetam [Keppra] 500 mg PO BID 01/06/19 [History] oxyCODONE HCl/Acetaminophen [Percocet 5-325 mg Tablet] 2 tab PO ASDIRECTED PRN 01/06/19 [History] Past Medical History HEENT History: Reports: None Cardiovascular History: Reports: Hypertension, Other (See Below) Other Cardiovascular History: states he's never been on anti-HTN med Respiratory History: Reports: None Gastrointestinal History: Reports: None Genitourinary History: Reports: None Musculoskeletal History: Reports: None Neurological History: Reports: None Psychiatric History: Reports: Anxiety, Depression Endocrine/Metabolic History: Reports: None Hematologic History: Reports: None Immunologic History: Reports: None Oncologic (Cancer) History: Reports: None Dermatologic History: Reports: None - Infectious Disease History Infectious Disease History: Reports: Chicken Pox - Past Surgical History Head Surgeries/Procedures: Reports: None HEENT Surgical History: Reports: None Cardiovascular Surgical History: Reports: None Respiratory Surgical History: Reports: None GI Surgical History: Reports: None Male Surgical History: Reports: None Endocrine Surgical History: Reports: None Neurological Surgical History: Reports: None Musculoskeletal Surgical History: Reports: None Oncologic Surgical History: Reports: None Dermatological Surgical History: Reports: None Social & Family History - Family History Family Medical History: Noncontributory - Caffeine Use Caffeine Use: Reports: None ED ROS GENERAL - Review of Systems Review Of Systems: Comprehensive ROS is negative, except as noted in HPI. ED EXAM, HEAD INJURY - Physical Exam Exam: See Below (See dictation) Course - Vital Signs Last Recorded V/S: Last Vital Signs Temp 36.3 C 01/06/19 23:30 Pulse 47 L 01/06/19 23:30 Resp 16 01/06/19 23:30 BP 142/77 H 01/06/19 23:30 Pulse Ox 99 01/06/19 23:30 Departure - Departure Time of Disposition: 23:39 Disposition: Home, Self-Care 01 Condition: Good Clinical Impression: Subdural hemorrhage, Otitis externa - Discharge Information Referrals: PCP,Unknown [Primary Care Provider] - Additional Instructions: The following information is given to patients seen in the emergency department who are being discharged to home. This information is to outline your options for follow-up care. We provide all patients seen in our emergency department with a follow-up referral. The need for follow-up, as well as the timing and circumstances, are variable depending upon the specifics of your emergency department visit. If you don't have a primary care physician on staff, we will provide you with a referral. We always advise you to contact your personal physician following an emergency department visit to inform them of the circumstance of the visit and for follow-up with them and/or the need for any referrals to a consulting specialist. The emergency department will also refer you to a specialist when appropriate. This referral assures that you have the opportunity for followup care with a specialist. All of these measure are taken in an effort to provide you with optimal care, which includes your followup. Under all circumstances we always encourage you to contact your private physician who remains a resource for coordinating your care. When calling for followup care, please make the office aware that this follow-up is from your recent emergency room visit. If for any reason you are refused follow-up, please contact the [facility] emergency department at and asked to speak to the emergency department charge nurse. Cortisporin Otic drops as prescribed continue current medications follow primary medical doctor as discussed and return as needed as discussed
== END 2019-01-06 23:55 | disposition home or self-care (01) ==
LOC: MW.ED 23:27
DX: H60.91 Unspecified otitis externa, right ear (principal); S06.5X9A Traumatic subdural hemorrhage with loss of consciousness of unspecified duration, initial encounter; I10 Essential (primary) hypertension; W19.XXXA Unspecified fall, initial encounter
CPT/HCPCS: 99283

== ENCOUNTER 2019-01-08 05:55 | Emergency (ER) | payer SELFPAY ==
--- NOTE | 2019-01-08 06:05 | EDM.PDOC ---
ED HPI GENERAL MEDICAL PROBLEM - General Stated Complaint: HEAD INJURY Time Seen by Provider: 01/08/19 06:02 - History of Present Illness INITIAL COMMENTS - FREE TEXT/NARRATIVE: HISTORY AND PHYSICAL: History of present illness: The patient is a 28-year-old male who was seen here on January 04 after he had been drinking the night before and sustained a minor fall and woke up with a diffuse headache and soft tissue scalp tendernes; he was evaluated with labs and a CT scan of the head which showed a moderate amount of edema and patchy small to moderate amount of acute parenchymal hemorrhage in the inferior right frontal lobe and also similar in the left frontal lobe inferior medially as well as small amount of acute subarachnoid bleeding overlying the right frontal lobe anteriorly and along the anterior falx. The patient also had scalp swelling and hematoma present in the posterior area and he was transferred to where he was admitted and had serial exams and CAT scans. He was discharged home and represented here to the emergency department 2 days later on January 06 for anxiety and air pain and was evaluated at that time and diagnosed with an otitis externa and placed on medication. On the providers report the patient expressed a lot of anxiety about his CT scan findings and was concerned about that at that time and had a scheduled follow- up. According to the his scheduled follow-up for CT scan and neurosurgery reevaluation is one month from now. This morning the patient presents to the ED with persistent headache and right ear pain along with episodic chest pain and nausea. He has no shortness of breath no abdominal pain and complains of some diffuse aches and pains in his back and extremities as a result of the fall but no weakness numbness or tingling. He has no palpitations in his chest pain is very vague and has been ongoing for the last 2 days. He is not passing out or blacking out but according to the family he is very low energy and he is not eating and drinking very much at all in the last 2 days. According to the he was transferred and admitted to [facility] and had 3 subsequent CAT scans all of which did not show any interval change and he spent 2 nights there and was discharged late on Tuesday. They said he was home only a half an hour when he represented here to the emergency department for reevaluation. The patient was started on Keppra for seizure prophylaxis and according to the patient he was advised not to hydrate very much because they were worried about swelling of his brain. He says that he has had one cup of coffee and one bottle of water and some sips of coconut water in the last 24 hours and really not much food. He has been taking his Percocet for pain management and has not had a pain pill in quite some time. His providers at [facility] are not aware of these persisting symptoms. He also says he is very photophobic in his right ear is still hurting him. The patient also says that after he was seen here 2 days ago on January 06 he slipped on the ice outside the hospital and fell landing on his lower back/but area and has had pain in that area but has not noticed any bruising. He did not hit his head again but he felt like he kristopher everything with that fall The patient tells me that he usually comes here to the emergency department because he goes on 3 or 4 day drinking binges with alcohol and then he has mild withdrawal and anxiety symptoms. He says that since this event he has not had any alcohol consumption. Review of systems: As per history of present illness and below otherwise all systems reviewed and negative. Past medical history: As per history of present illness and as reviewed below otherwise noncontributory. Surgical history: As per history of present illness and as reviewed below otherwise noncontributory. Social history: No reported history of drug or alcohol abuse. Family history: As per history of present illness and as reviewed below otherwise noncontributory. Physical exam: General: Well-developed well-nourished man who is slow to move and talk but is nontoxic but very low energy on my evaluation. Vital signs are noted by me. He speaking clearly and easily. Patient is bradycardic here and I reviewed his prior vital signs from his prior 2 visits, please see below HEENT: Atraumatic, normocephalic, pupils reactive, sclerae are not injected, the patient does have photophobia on exam, negative for conjunctival pallor or scleral icterus, mucous membranes moist, throat clear, neck supple, nontender, trachea midline. There is no cervical adenopathy or nuchal rigidity, the TMs bilaterally are within normal limits but there is erythema and edema still present of the right external canal without any mastoid tenderness or erythema. Patient does have discomfort with bilateral ear exam. Lungs: Clear to auscultation, breath sounds equal bilaterally, chest nontender. Heart: S1S2, regular rhythm and bradycardic rate on my evaluation no overt murmurs Abdomen: Soft, nondistended, nontender. Negative for masses or hepatosplenomegaly. Hypoactive bowel sounds Pelvis: Stable nontender. Genitourinary: Deferred. Rectal: Deferred. Extremities: Atraumatic, negative for cords or calf pain. Neurovascular unremarkable. Full range of motion no defects or deficits Neuro: Awake, alert, oriented. Cranial nerves II through XII unremarkable. Cerebellum unremarkable. Motor and sensory unremarkable throughout. Exam nonfocal. The patient is not tremulous on my evaluation Skin: There is no diaphoresis turgor is normal and no overt rashes or lesions Back: There are no midline step-offs or defects of the thoracic or lumbar spine but there is some diffuse lumbar and paralumbar tenderness with palpation without any defects or deformities. There is no soft tissue injuries ecchymosis or soft tissue swelling appreciated in the coccyx is without tenderness. The posterior pelvis is also without tenderness defects or deformities Diagnostics: EKG CT scan of the head chest x-ray CBC CMP troponin magnesium INR ,LS spine x- ray Therapeutics: IV O2 monitor IV fluids Zofran and fentanyl On the patient's prior to ED visits on January 04 and January 06 his heart rate ranged from 46-low 50's. the mother and patient are aware of CT scan and x-ray findings as well as lab results. The patient was made aware that CT scan has had no interval change and that he needs to continue with his current management plan per the neurosurgeon from [facility] in [place]. I've advised them that they need to call and touch base with themregarding his persistent symptoms to see if they want to adjust any of his management and/or see him. Impression: persistent headache and poor by mouth intake with history of traumatic parenchymal and subdural bleed Definitive disposition and diagnosis as appropriate pending reevaluation and review of above. head;chest Pain Score (Numeric/FACES): 8 - Related Data Allergies Allergy/AdvReac Type Severity Reaction Status Date / Time No Known Allergies Allergy Verified 01/08/19 06:11 Home Meds: Home Meds ALPRAZolam [Xanax] 0.5 mg PO ASDIRECTED 01/04/19 [History] levETIRAcetam [Keppra] 500 mg PO BID 01/06/19 [History] oxyCODONE HCl/Acetaminophen [Percocet 5-325 mg Tablet] 2 tab PO ASDIRECTED PRN 01/06/19 [History] Past Medical History HEENT History: Reports: None Cardiovascular History: Reports: Hypertension, Other (See Below) Other Cardiovascular History: states he's never been on anti-HTN med Respiratory History: Reports: None Gastrointestinal History: Reports: None Genitourinary History: Reports: None Musculoskeletal History: Reports: None Neurological History: Reports: None Other Neuro History: subdural hematoma Psychiatric History: Reports: Anxiety, Depression Endocrine/Metabolic History: Reports: None Hematologic History: Reports: None Immunologic History: Reports: None Oncologic (Cancer) History: Reports: None Dermatologic History: Reports: None - Infectious Disease History Infectious Disease History: Reports: Chicken Pox - Past Surgical History Head Surgeries/Procedures: Reports: None HEENT Surgical History: Reports: None Cardiovascular Surgical History: Reports: None Respiratory Surgical History: Reports: None GI Surgical History: Reports: None Male Surgical History: Reports: None Endocrine Surgical History: Reports: None Neurological Surgical History: Reports: None Musculoskeletal Surgical History: Reports: None Oncologic Surgical History: Reports: None Dermatological Surgical History: Reports: None Social & Family History - Family History Family Medical History: Noncontributory - Caffeine Use Caffeine Use: Reports: None ED ROS GENERAL - Review of Systems Review Of Systems: Comprehensive ROS is negative, except as noted in HPI. ED EXAM, GENERAL - Physical Exam Exam: See Below (See dictation) Course - Vital Signs Last Recorded V/S: Last Vital Signs Temp 36.6 C 01/08/19 05:55 Pulse 40 L 01/08/19 06:51 Resp 14 01/08/19 06:51 BP 123/70 01/08/19 06:51 Pulse Ox 95 01/08/19 06:51 - Orders/Labs/Meds Orders: Active Orders 24 hr Category Date Time Status Blood Glucose Check, Bedside [RC] ONETIME Care 01/08/19 06:18 Active Cardiac Monitoring [RC] . DIRECTED Care 01/08/19 06:18 Active EKG Documentation Completion [RC] STAT Care 01/08/19 06:02 Active Oxygen Therapy, ED [RC] ASDIRECTED Care 01/08/19 06:18 Active Pulse Oximetry [RC] ASDIRECTED Care 01/08/19 06:18 Active UA RFX ROXANA AND CULT IF INDIC [URIN] Stat Lab 01/08/19 06:19 Ordered Sodium Chloride 0.9% [Normal Saline] 1,000 ml Med 01/08/19 06:30 Active IV ASDIRECTED Sodium Chloride 0.9% [Saline Flush] Med 01/08/19 06:20 Active 10 ml FLUSH ASDIRECTED PRN Sodium Chloride 0.9% [Saline Flush] Med 01/08/19 06:20 Active 2.5 ml FLUSH ASDIRECTED PRN Saline Lock Insert [OM.PC] Stat Oth 01/08/19 06:18 Ordered Medication Orders Sodium Chloride (Normal Saline) 1,000 mls @ 125 mls/hr IV ASDIRECTED KATE Last Admin: 01/08/19 07:02 Dose: 125 mls/hr Sodium Chloride (Saline Flush) 10 ml FLUSH ASDIRECTED PRN PRN Reason: Keep Vein Open Sodium Chloride (Saline Flush) 2.5 ml FLUSH ASDIRECTED PRN PRN Reason: Keep Vein Open Labs: Laboratory Tests 01/08/19 01/08/19 01/08/19 Range/Units 06:20 06:20 06:20 WBC 8.89 (4.0-11.0) K/uL RBC 4.95 (4.50-5.90) M/uL Hgb 15.1 (13.0-17.0) g/dL Hct 43.2 (38.0-50.0) % MCV 87.3 (80.0-98.0) fL MCH 30.5 (27.0-32.0) pg MCHC 35.0 (31.0-37.0) g/dL RDW Std Deviation 39.1 (28.0-62.0) fl RDW Coeff of Dwight 12 (11.0-15.0) % Plt Count 228 (150-400) K/uL MPV 10.50 (7.40-12.00) fL Neut % (Auto) 65.2 (48.0-80.0) % Lymph % (Auto) 23.7 (16.0-40.0) % Republic % (Auto) 10.6 (0.0-15.0) % Eos % (Auto) 0.3 (0.0-7.0) % Baso % (Auto) 0.2 (0.0-1.5) % Neut # (Auto) 5.8 H (1.4-5.7) K/uL Lymph # (Auto) 2.1 (0.6-2.4) K/uL Republic # (Auto) 0.9 H (0.0-0.8) K/uL Eos # (Auto) 0.0 (0.0-0.7) K/uL Baso # (Auto) 0.0 (0.0-0.1) K/uL Nucleated RBC % 0.0 /100WBC Nucleated RBCs # 0 K/uL INR 1.01 Sodium 140 (136-148) mmol/L Potassium 4.2 (3.5-5.1) mmol/L Chloride 103 (98-107) mmol/L Carbon Dioxide 27.1 (21.0-32.0) mmol/L BUN 12 (7.0-18.0) mg/dL Creatinine 1.3 (0.8-1.3) mg/dL Est Cr Clr Drug Dosing 84.60 mL/min Estimated GFR (MDRD) > 60.0 ml/min Glucose 99 (74-106) mg/dL Calcium 9.5 (8.5-10.1) mg/dL Magnesium 2.2 (1.8-2.4) mg/dL Total Bilirubin 0.5 (0.2-1.0) mg/dL AST 17 (15-37) IU/L ALT 87 H (14-63) IU/L Alkaline Phosphatase 58 (46-116) U/L Troponin I < 0.050 (0.000-0.056) ng/mL Total Protein 8.0 (6.4-8.2) g/dL Albumin 3.9 (3.4-5.0) g/dL Globulin 4.1 H (2.6-4.0) g/dL Albumin/Globulin Ratio 1.0 (0.9-1.6) Meds: Medications Generic Name Dose Route Start Last Admin Trade Name Freq PRN Reason Stop Dose Admin Sodium Chloride 1,000 mls @ 125 mls/hr 01/08/19 06:30 01/08/19 07:02 Normal Saline IV 125 mls/hr ASDIRECTED KATE Administration Sodium Chloride 10 ml 01/08/19 06:20 Saline Flush FLUSH ASDIRECTED PRN Keep Vein Open Sodium Chloride 2.5 ml 01/08/19 06:20 Saline Flush FLUSH ASDIRECTED PRN Keep Vein Open Discontinued Medications Generic Name Dose Route Start Last Admin Trade Name Edith PRN Reason Stop Dose Admin Fentanyl 25 mcg 01/08/19 06:20 01/08/19 07:08 Fentanyl IVPUSH 01/08/19 06:21 25 mcg ONETIME ONE Administration Fentanyl Confirm 01/08/19 06:58 01/08/19 07:09 Sublimaze Administered 01/08/19 06:59 Not Given Dose 100 mcg .ROUTE .STK-MED ONE Ondansetron HCl 4 mg 01/08/19 06:19 01/08/19 06:59 Zofran IVPUSH 01/08/19 06:20 4 mg ONETIME ONE Administration Departure - Departure Time of Disposition: 07:13 Disposition: Home, Self-Care 01 Condition: Fair Clinical Impression: Persistent headaches, History of traumatic brain injury - Discharge Information Referrals: PCP,None [Primary Care Provider] - Additional Instructions: The following information is given to patients seen in the emergency department who are being discharged to home. This information is to outline your options for follow-up care. We provide all patients seen in our emergency department with a follow-up referral. The need for follow-up, as well as the timing and circumstances, are variable depending upon the specifics of your emergency department visit. If you don't have a primary care physician on staff, we will provide you with a referral. We always advise you to contact your personal physician following an emergency department visit to inform them of the circumstance of the visit and for follow-up with them and/or the need for any referrals to a consulting specialist. The emergency department will also refer you to a specialist when appropriate. This referral assures that you have the opportunity for followup care with a specialist. All of these measure are taken in an effort to provide you with optimal care, which includes your followup. Under all circumstances we always encourage you to contact your private physician who remains a resource for coordinating your care. When calling for followup care, please make the office aware that this follow-up is from your recent emergency room visit. If for any reason you are refused follow-up, please contact the [facility] emergency department at and ask to speak to the emergency department charge nurse. JULIANE [facility] Primary care- Internal Medicine and Family [place] [phone] Please continue your home medications as directed to you by your neurosurgeon. Please contact the neurosurgery Department at [facility] for ongoing or persisting symptoms or evolution of your symptoms as we discussed. Rest and try to push more hydration. Return to ER as needed and as discussed - My Orders Last 24 Hours: My Active Orders 01/08/19 06:02 EKG Documentation Completion [RC] STAT 01/08/19 06:18 Blood Glucose Check, Bedside [RC] ONETIME Cardiac Monitoring [RC] . DIRECTED Oxygen Therapy, ED [RC] ASDIRECTED Pulse Oximetry [RC] ASDIRECTED Saline Lock Insert [OM.PC] Stat 01/08/19 06:19 UA RFX ROXANA AND CULT IF INDIC [URIN] Stat 01/08/19 06:20 Sodium Chloride 0.9% [Saline Flush] 10 ml FLUSH ASDIRECTED PRN Sodium Chloride 0.9% [Saline Flush] 2.5 ml FLUSH ASDIRECTED PRN 01/08/19 06:30 Sodium Chloride 0.9% [Normal Saline] 1,000 ml IV ASDIRECTED - Assessment/Plan Last 24 Hours: My Active Orders 01/08/19 06:02 EKG Documentation Completion [RC] STAT 01/08/19 06:18 Blood Glucose Check, Bedside [RC] ONETIME Cardiac Monitoring [RC] . DIRECTED Oxygen Therapy, ED [RC] ASDIRECTED Pulse Oximetry [RC] ASDIRECTED Saline Lock Insert [OM.PC] Stat 01/08/19 06:19 UA RFX ROXANA AND CULT IF INDIC [URIN] Stat 01/08/19 06:20 Sodium Chloride 0.9% [Saline Flush] 10 ml FLUSH ASDIRECTED PRN Sodium Chloride 0.9% [Saline Flush] 2.5 ml FLUSH ASDIRECTED PRN 01/08/19 06:30 Sodium Chloride 0.9% [Normal Saline] 1,000 ml IV ASDIRECTED
[2019-01-08] MEDS ORDERED: Ondansetron 4 MG/2 ML SDV IVPUSH ONE (06:19)
[2019-01-08] MEDS ORDERED: Sodium Chloride 0.9% 10 ML Syringe FLUSH PRN (06:20)
[2019-01-08] MEDS ORDERED: fentaNYL 50 MCG/ML SDV IVPUSH ONE (06:20)
[2019-01-08] MEDS ORDERED: Sodium Chloride 0.9% 2.5 ML Syringe FLUSH PRN (06:20)
[2019-01-08] MEDS ORDERED: Sodium Chloride 0.9% 1,000 ML IV SCH (06:30)
[2019-01-08] MEDS ORDERED: fentaNYL 100 MCG/2 ML SDV ONE (06:58)
--- NOTE | 2019-01-08 07:01 | CT ---
INDICATION: Fall. Followup intracranial hemorrhage. COMPARISON: Head CT scans dated 04 January 2019 and 27 October 2018. TECHNIQUE: Noncontrast head CT scan. FINDINGS: Edema and patchy areas of intraparenchymal hemorrhage in the lower portions of the frontal lobes, right greater than left, are unchanged. Subdural hemorrhage along the adjacent anterior falx is unchanged. No new intracranial hemorrhage identified. No other abnormal foci of altered attenuation in the brain parenchyma. No midline shift or mass effect. No hydrocephalus. No abnormalities of the skull or scalp identified. IMPRESSION: 1. Edema and patchy areas of intraparenchymal hemorrhage in the lower portions of the frontal lobes are unchanged. 2. Subdural hematoma along the anterior falx is unchanged. Dictated by Igor Chamberlain MD @ 01/08/2019 6:59:30 AM Dictated by: Igor Chamberlain MD @ 01/08/2019 06:59:44 (Electronically Signed)
--- NOTE | 2019-01-08 07:03 | CR ---
INDICATION: Fall. COMPARISON: Chest x-ray dated 27 October 2018. FINDINGS: A single portable chest x-ray shows a normal cardiac silhouette. The lungs show no focal pulmonary opacities. Sharp pleural margins. No pneumothorax. IMPRESSION: No evidence of acute pulmonary abnormalities. Dictated by Igor Chamberlain MD @ 01/08/2019 7:00:49 AM Dictated by: Igor Chamberlain MD @ 01/08/2019 07:01:02 (Electronically Signed)
--- NOTE | 2019-01-08 07:03 | CR ---
INDICATION: Fall. FINDINGS: Three views of the lumbar spine show normal height and alignment of lumbar vertebral bodies. No evidence of acute fracture or dislocation. No other bony or soft tissue abnormalities identified. Dictated by Igor Chamberlain MD @ 01/08/2019 7:01:56 AM Dictated by: Igor Chamberlain MD @ 01/08/2019 07:02:07 (Electronically Signed)
[2019-01-08 07:05] LABS: BLOOD UREA NITROGEN,BUN 12 mg/dL (7.0-18.0); CARBON DIOXIDE,CO2 27.1 mmol/L (21.0-32.0); CHLORIDE,CL 103 mmol/L (98-107); GLUCOSE RANDOM 99 mg/dL (74-106); POTASSIUM,K 4.2 mmol/L (3.5-5.1); SODIUM,NA 140 mmol/L (136-148)
== END 2019-01-08 08:16 | disposition home or self-care (01) ==
LOC: MW.ED 05:55
DX: R51 Headache (principal); Z87.820 Personal history of traumatic brain injury; R63.8 Other symptoms and signs concerning food and fluid intake; H57.89 Other specified disorders of eye and adnexa; F41.9 Anxiety disorder, unspecified; F32.9 Major depressive disorder, single episode, unspecified; Z79.899 Other long term (current) drug therapy
CPT/HCPCS: 36415; 70450; 71045; 72100; 80053; 82962; 83735; 84484; 85025; 85610; 93005; 96361; 96374; 96375; 99285; J2405; J3010; J7030

== ENCOUNTER 2019-01-14 00:02 | Emergency (ER) | payer SELFPAY ==
--- NOTE | 2019-01-14 01:12 | CR ---
Indication: Fall Technique: Three views right ankle Comparison: None Findings: Bones: Alignment is normal. No fractures or bone lesions. Joint spaces: Unremarkable. Soft tissues: Unremarkable. Impression: Negative. Dictated by Carmen Florez MD @ Jan 14 2019 1:11AM Signed by Dr. Carmen Florez @ Jan 14 2019 1:11AM
--- NOTE | 2019-01-14 01:17 | CR ---
Indication: Fall Technique: Three views right hand Comparison: None Findings: Bones: Alignment is normal. No fractures or bone lesions. Joint spaces: Unremarkable. Soft tissues: 2 mm linear foreign body in the soft tissues adjacent to the 2nd middle phalanx. Impression: No acute fracture subluxation. 2 mm linear foreign body in the soft tissues adjacent to the 2nd middle phalanx. Dictated by Carmen Florez MD @ Jan 14 2019 1:14AM Signed by Dr. Carmen Florez @ Jan 14 2019 1:14AM
--- NOTE | 2019-01-14 01:27 | EDM.PDOC ---
ED HPI GENERAL MEDICAL PROBLEM - General Chief Complaint: General Stated Complaint: MEDICAL CLEARANCE Time Seen by Provider: 01/14/19 01:22 Source of Information: Reports: Patient - History of Present Illness INITIAL COMMENTS - FREE TEXT/NARRATIVE: HISTORY AND PHYSICAL: History of present illness: []Patient presents for medical screening, apparently per police he had punched a window and kicked a window they have some minor abrasions on the dorsum of his hand and over his heel right hand and right foot unaffected, standard wound care no sutures required no full-thickness laceration Clinical alcohol intoxication otherwise alert interactive no aggression at this time No fever nausea vomiting chills sweats no chest pain shortness breath headache dizziness palpitation about a urine symptoms History of seizure disorder Review of systems: As per history of present illness and below otherwise all systems reviewed and negative. Past medical history: As per history of present illness and as reviewed below otherwise noncontributory. Surgical history: As per history of present illness and as reviewed below otherwise noncontributory. Social history: No reported history of drug or alcohol abuse. Family history: As per history of present illness and as reviewed below otherwise noncontributory. Physical exam: HEENT: Atraumatic, normocephalic, pupils reactive, negative for conjunctival pallor or scleral icterus, mucous membranes moist, throat clear, neck supple, nontender, trachea midline. Lungs: Clear to auscultation, breath sounds equal bilaterally, chest nontender. Heart: S1S2, regular, negative for clicks, rubs, or JVD. Abdomen: Soft, nondistended, nontender. Negative for masses or hepatosplenomegaly. Negative for costovertebral tenderness. Pelvis: Stable nontender. Genitourinary: Deferred. Rectal: Deferred. Extremities: Atraumatic, negative for cords or calf pain. Neurovascular unremarkable. Neuro: Awake, alert, oriented. Cranial nerves II through XII unremarkable. Cerebellum unremarkable. Motor and sensory unremarkable throughout. Exam nonfocal. Diagnostics: [ hand 3 views Right foot 3 views ] Therapeutics: [] refused tetanus update keppra 500 mg by mouth twice a day Impression: screening exam elcohol intoxication/clinical History of seizure disorder ] Definitive disposition and diagnosis as appropriate pending reevaluation and review of above. - Related Data Allergies Allergy/AdvReac Type Severity Reaction Status Date / Time No Known Allergies Allergy Verified 01/08/19 06:11 Home Meds: Home Meds ALPRAZolam [Xanax] 0.5 mg PO ASDIRECTED 01/04/19 [History] levETIRAcetam [Keppra] 500 mg PO BID 01/06/19 [History] oxyCODONE HCl/Acetaminophen [Percocet 5-325 mg Tablet] 2 tab PO ASDIRECTED PRN 01/06/19 [History] Past Medical History HEENT History: Reports: None Cardiovascular History: Reports: Hypertension, Other (See Below) Other Cardiovascular History: states he's never been on anti-HTN med Respiratory History: Reports: None Gastrointestinal History: Reports: None Genitourinary History: Reports: None Musculoskeletal History: Reports: None Neurological History: Reports: None Other Neuro History: subdural hematoma Psychiatric History: Reports: Anxiety, Depression Endocrine/Metabolic History: Reports: None Hematologic History: Reports: None Immunologic History: Reports: None Oncologic (Cancer) History: Reports: None Dermatologic History: Reports: None - Infectious Disease History Infectious Disease History: Reports: Chicken Pox - Past Surgical History Head Surgeries/Procedures: Reports: None HEENT Surgical History: Reports: None Cardiovascular Surgical History: Reports: None Respiratory Surgical History: Reports: None GI Surgical History: Reports: None Male Surgical History: Reports: None Endocrine Surgical History: Reports: None Neurological Surgical History: Reports: None Musculoskeletal Surgical History: Reports: None Oncologic Surgical History: Reports: None Dermatological Surgical History: Reports: None Social & Family History - Family History Family Medical History: Noncontributory - Tobacco Use Smoking Status *Q: Current Status Unknown - Caffeine Use Caffeine Use: Reports: None - Recreational Drug Use Recreational Drug Use: No ED ROS GENERAL - Review of Systems Review Of Systems: See Below ED EXAM, GENERAL - Physical Exam Exam: See Below Course - Vital Signs Last Recorded V/S: Last Vital Signs Temp 97.7 F 01/14/19 00:10 Pulse 109 H 01/14/19 00:10 Resp 18 01/14/19 00:10 BP 100/73 01/14/19 00:10 Pulse Ox 95 01/14/19 00:10 - Orders/Labs/Meds Orders: Active Orders 24 hr Category Date Time Status Blood Glucose Check, Bedside [RC] ONETIME Care 01/14/19 00:38 Active Departure - Departure Time of Disposition: 01:26 Disposition: Home, Self-Care 01 Condition: Good Clinical Impression: Encounter for medical screening examination - Discharge Information Referrals: PCP,None [Primary Care Provider] - Additional Instructions: The following information is given to patients seen in the emergency department who are being discharged to home. This information is to outline your options for follow-up care. We provide all patients seen in our emergency department with a follow-up referral. The need for follow-up, as well as the timing and circumstances, are variable depending upon the specifics of your emergency department visit. If you don't have a primary care physician on staff, we will provide you with a referral. We always advise you to contact your personal physician following an emergency department visit to inform them of the circumstance of the visit and for follow-up with them and/or the need for any referrals to a consulting specialist. The emergency department will also refer you to a specialist when appropriate. This referral assures that you have the opportunity for follow-up care with a specialist. All of these measure are taken in an effort to provide you with optimal care, which includes your follow-up. Under all circumstances we always encourage you to contact your private physician who remains a resource for coordinating your care. When calling for follow-up care, please make the office aware that this follow-up is from your recent emergency room visit. If for any reason you are refused follow-up, please contact the [facility] emergency department at and asked to speak to the emergency department charge nurse. - My Orders Last 24 Hours: My Active Orders 01/14/19 00:38 Blood Glucose Check, Bedside [RC] ONETIME - Assessment/Plan Last 24 Hours: My Active Orders 01/14/19 00:38 Blood Glucose Check, Bedside [RC] ONETIME
== END 2019-01-14 01:30 ==
LOC: MW.ED 00:02
DX: F10.129 Alcohol abuse with intoxication, unspecified (principal); G40.909 Epilepsy, unspecified, not intractable, without status epilepticus; S60.511A Abrasion of right hand, initial encounter; S90.511A Abrasion, right ankle, initial encounter; I10 Essential (primary) hypertension; Y90.9 Presence of alcohol in blood, level not specified; W22.09XA Striking against other stationary object, initial encounter
CPT/HCPCS: 73130-26-RT; 73130-RT; 73610-26-RT; 73610-RT; 99283; 99284-25

== ENCOUNTER 2019-05-12 10:04 | Emergency (ER) | payer BC, OTHER ==
--- NOTE | 2019-05-12 10:59 | EDM.PDOC ---
ED HPI GENERAL MEDICAL PROBLEM - General Chief Complaint: Skin Complaint Stated Complaint: CYST IN BUTTOCK CREASE/COUGHING AND SOB Time Seen by Provider: 05/12/19 10:55 Source of Information: Reports: Patient History Limitations: Reports: No Limitations - History of Present Illness INITIAL COMMENTS - FREE TEXT/NARRATIVE: This 28 year old male is admitted to the ED with a chief complaint of pain in his buttock crease for one week that has gotten somewhat worse. He states that he has a history of pilonidal cyst and feels that this is what he has now. He states that he has tried to press on the area to release the fluid but that nothing was coming out. 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 He states that his boss told him that someone sent to the ED a day or two ago tested positive. The patient has had no close contact with the possible COVID patient. He has had a dry cough for approximately two days. He complains of very mild SOB with exercise. He denies any fever or chills. He does not have any taste issues. He denies any lethargy at this time. Severity: Mild (pain in the buttock crease) Worsens with: Reports: Other (worse with setting) Context: Denies: Sick Contact Buttock Pain Score (Numeric/FACES): 5 - Related Data Allergies Allergy/AdvReac Type Severity Reaction Status Date / Time No Known Allergies Allergy Verified 05/12/19 10:19 Home Meds: Home Meds ALPRAZolam [Xanax] 0.5 mg PO ASDIRECTED 01/04/19 [History] Cephalexin [Keflex] 500 mg PO BID 7 Days #14 capsule 05/12/19 [Rx] Past Medical History HEENT History: Reports: None Cardiovascular History: Reports: Hypertension, Other (See Below) Other Cardiovascular History: states he's never been on anti-HTN med Respiratory History: Reports: None Gastrointestinal History: Reports: None Genitourinary History: Reports: None Musculoskeletal History: Reports: None Neurological History: Reports: None Other Neuro History: subdural hematoma, fell out of a chair while sleeping. Psychiatric History: Reports: Anxiety, Depression Endocrine/Metabolic History: Reports: None Hematologic History: Reports: None Immunologic History: Reports: None Oncologic (Cancer) History: Reports: None Dermatologic History: Reports: None - Infectious Disease History Infectious Disease History: Reports: Chicken Pox - Past Surgical History Head Surgeries/Procedures: Reports: None HEENT Surgical History: Reports: None Cardiovascular Surgical History: Reports: None Respiratory Surgical History: Reports: None GI Surgical History: Reports: None Male Surgical History: Reports: None Endocrine Surgical History: Reports: None Neurological Surgical History: Reports: None Musculoskeletal Surgical History: Reports: None Other Musculoskeletal Surgeries/Procedures:: Broken collar bone, and hand bones. Oncologic Surgical History: Reports: None Dermatological Surgical History: Reports: None Social & Family History - Family History Family Medical History: Noncontributory - Tobacco Use Smoking Status *Q: Current Every Day Smoker Years of Tobacco use: 12 Packs/Tins Daily: 0.5 - Caffeine Use Caffeine Use: Reports: Coffee - Recreational Drug Use Recreational Drug Use: No ED ROS GENERAL - Review of Systems Review Of Systems: See Below Constitutional: Reports: No Symptoms HEENT: Reports: No Symptoms Respiratory: Reports: Shortness of Breath (mild SOB), Cough (very mild. No coughing while in the ED at time of my visit.) Cardiovascular: Reports: No Symptoms Endocrine: Reports: No Symptoms GI/Abdominal: Reports: No Symptoms : Reports: No Symptoms Skin: Reports: No Symptoms Neurological: Reports: No Symptoms ED EXAM, SKIN/RASH Exam: See Below Exam Limited By: No Limitations General Appearance: Alert, WD/WN, No Apparent Distress Eye Exam: Bilateral Eye: Normal Inspection, PERRL Ears: Normal External Exam, Normal Canal, Hearing Grossly Normal, Normal TMs Nose: Normal Inspection, Normal Mucosa, No Blood Throat/Mouth: Normal Inspection, Normal Oropharynx, No Airway Compromise Head: Atraumatic, Normocephalic Neck: Normal Inspection, Supple, Full Range of Motion. No: Lymphadenopathy (L) , Lymphadenopathy (R) Respiratory/Chest: No Respiratory Distress, Chest Non-Tender, Decreased Breath Sounds (mild decrease breath sounds in the right base only.). No: Crackles, Rales, Rhonchi, Wheezing Cardiovascular: Normal Peripheral Pulses, Regular Rate, Rhythm, No Edema, No Gallop, No Murmur, No Rub GI/Abdominal: Normal Bowel Sounds, Soft, Non-Tender, No Organomegaly, No Distention, No Mass (Male) Exam: Deferred Rectal (Males) Exam: Other (early pilonidal cyst is noted in the superior aspects of the interglutal cleft (buttock crease) that is tender to palpation. Slight area of induration but no sign of fluid yet.). No: Hemorrhoids, Perirectal Abscess, Rectal Fissure Back Exam: Normal Inspection, Full Range of Motion Extremities: Normal Inspection, Normal Range of Motion, Non-Tender, Normal Capillary Refill Neurological: Alert, Oriented (times 4), CN II-XII Intact, Normal Cognition, Normal Reflexes, No Motor/Sensory Deficits Psychiatric: Normal Affect, Normal Mood Skin: Warm, Dry, Intact, Normal Color Location, Skin: Other (see buttock exam) Lymphatic: No Adenopathy Course - Vital Signs Text/Narrative:: The patient clinical course was unremarkable. All of his diagnostic test were unremarkable including a negative chest X-ray. His Pilonidal Cyst is in the early stages and is not ready for lancing. He will be discharged. He agrees with the discharge plan. I reviewed the patient chest x-ray which is unremarkable. His influenza A&B are negative. He will be discharged. He agrees with the discharge plan. Last Recorded V/S: Last Vital Signs Temp 97.6 F 05/12/19 10:20 Pulse 63 05/12/19 10:20 Resp 16 05/12/19 10:20 BP 141/75 H 05/12/19 10:20 Pulse Ox 96 05/12/19 10:20 - Orders/Labs/Meds Orders: Active Orders 24 hr Category Date Time Status Isolation [COMM] Routine Oth 05/12/19 10:54 Active Departure - Departure Time of Disposition: 12:20 Disposition: Home, Self-Care 01 Condition: Good Clinical Impression: Pilonidal cyst without infection - Discharge Information *PRESCRIPTION DRUG MONITORING PROGRAM REVIEWED*: Yes *COPY OF PRESCRIPTION DRUG MONITORING REPORT IN PATIENT DELMER: Yes Instructions: Pilonidal Cyst Drainage Referrals: Lane Hess MD [Primary Care Provider] - Forms: ED Department Discharge, ED Return to Work/School Form Additional Instructions: Take all medications as directed. Follow up with your PCP in the next two to four days. Sitz bath in very warm water three times a day for the next 2-3 days. Warm compresses to the involved area for the next two to three days (30 minutes on and one hour off while awake). No work for three days. With the use of heat, you might get the Pilonidal cyst or possible abscess to come to a head and should be able to press the area and release of fluid. Rest for the next 24 hours. Return to the ED if your condition gets worse or should you have any questions or concerns. The following information is given to patients seen in the emergency department who are being discharged to home. This information is to outline your options for follow-up care. We provide all patients seen in our emergency department with a follow-up referral. The need for follow-up, as well as the timing and circumstances, are variable depending upon the specifics of your emergency department visit. If you don't have a primary care physician on staff, we will provide you with a referral. We always advise you to contact your personal physician following an emergency department visit to inform them of the circumstance of the visit and for follow-up with them and/or the need for any referrals to a consulting specialist. The emergency department will also refer you to a specialist when appropriate. This referral assures that you have the opportunity for follow-up care with a specialist. All of these measure are taken in an effort to provide you with optimal care, which includes your follow-up. Under all circumstances we always encourage you to contact your private physician who remains a resource for coordinating your care. When calling for follow-up care, please make the office aware that this follow-up is from your recent emergency room visit. If for any reason you are refused follow-up, please contact the [facility] Emergency Department at and asked to speak to the emergency department charge nurse. Sepsis Event Note - Evaluation Sepsis Screening Result: No Definite Risk - Focused Exam Vital Signs: Vital Signs Temp Pulse Resp BP Pulse Ox 05/12/19 10:20 97.6 F 63 16 141/75 H 96 Date Exam was Performed: 05/12/19 Time Exam was Performed: 12:19 - My Orders Last 24 Hours: My Active Orders 05/12/19 10:54 Isolation [COMM] Routine - Assessment/Plan Last 24 Hours: My Active Orders 05/12/19 10:54 Isolation [COMM] Routine
--- NOTE | 2019-05-12 11:34 | CR ---
Chest: Portable view of the chest was obtained. Comparison: Previous chest x-ray of 10/27/18. Heart size and mediastinum are normal. Deformity of the right clavicle is seen compatible with old healed fracture. No acute osseous finding is seen. Lungs are clear with no acute parenchymal change. Impression: 1. Nothing acute is appreciated on portable chest x-ray. Diagnostic code #2 Study was dictated in MDT
== END 2019-05-12 12:46 | disposition home or self-care (01) ==
LOC: MW.ED 10:04
DX: L05.91 Pilonidal cyst without abscess (principal); I10 Essential (primary) hypertension; F41.9 Anxiety disorder, unspecified; F32.9 Major depressive disorder, single episode, unspecified; F17.210 Nicotine dependence, cigarettes, uncomplicated
CPT/HCPCS: 71045; 71045-26; 87804; 99283; 99285-25